=== PATIENT | female | born 1995 | race Two or more races ===

== ENCOUNTER 2016-08-06 22:14 | Inpatient (IN) | payer MEDICAID, OTHER ==
[2016-08-06] MEDS ORDERED: LIDOCAINE 1% (PRES FREE) 30 ML VIAL ONE (22:20)
[2016-08-06] MEDS ORDERED: PUMP TUBING ONE (22:20)
[2016-08-06] MEDS ORDERED: MINERAL OIL 25 ML BOT ONE (22:20)
[2016-08-06] MEDS ORDERED: OXYTOCIN 10 UNITS/ML VIAL ONE (22:20)
[2016-08-06] MEDS ORDERED: LACTATED RINGERS 1,000 ML ONE ×2 (22:20→23:39)
[2016-08-06] MEDS ORDERED: OXYTOCIN IN LR 0 ML IV ONE (22:20)
[2016-08-06] MEDS ORDERED: LIDOCAINE Viscous 2% 15 ML UDCUP ONE (22:20)
[2016-08-06] MEDS ORDERED: IV START KIT ONE ×2 (22:20→23:38)
[2016-08-06] MEDS ORDERED: SODIUM CHLORIDE 0.9% FLUSH 0 ML ONE (22:21)
[2016-08-06 23:24] VITALS: BMI 39.2
[2016-08-06] MEDS ORDERED: CEFAZOLIN SODIUM 2 GRAM DUPLEX 2 G in Premix (D5W) 50 ml 1 EACH IV PRN (23:47)
[2016-08-06] MEDS ORDERED: BUPIVACAINE 0.75% SPINAL AMPUL 2 ML ONE (23:56)
[2016-08-06] MEDS ORDERED: MORPHINE SULFATE (DURAMORPH) 1 MG/ML 10ML AMP ONE (23:56)
[2016-08-06] MEDS ORDERED: FENTANYL 100 MCG/2 ML VIAL ONE (23:56)
[2016-08-06] MEDS ORDERED: EPHEDRINE SULFATE 50 MG/ML 1ML VIAL ONE (23:58)
[2016-08-06] MEDS ORDERED: SODIUM CHLORIDE 0.9% FLUSH 10 ML ONE (23:58)
[2016-08-06] MEDS ORDERED: SPINAL PROCEDURAL TRAY 1 EACH ONE (23:59)
[2016-08-07] MEDS: LACTATED RINGERS 1,000 ML IV SCH ×4 (00:05→17:35)
[2016-08-07] MEDS ORDERED: CEFAZOLIN SODIUM 2 GRAM DUPLEX 50 ML IV ONE (00:17)
[2016-08-07 00:29] LABS: HEMATOCRIT 37.8 % (37.0-47.0); MEAN CELL VOLUME 80.6 fl (81.0-99.0); MEAN CORPUSCULAR HEMOGLOBIN 25.6 pg (27.0-31.0); MEAN CORPUSCULAR HGB CONC 31.7 g/dl (33.0-37.0); RED CELL DISTRIBUTION WIDTH 18.6 % (11.5-14.5)
[2016-08-07] MEDS ORDERED: PROMETHAZINE HCL 25 MG/ML VIAL ONE (00:51)
[2016-08-07] MEDS ORDERED: OXYTOCIN 10 UNITS/ML VIAL ONE ×3 (00:51→01:38)
[2016-08-07] MEDS ORDERED: MEPERIDINE 25 MG/ML SYRINGE ONE ×2 (00:52)
[2016-08-07] MEDS ORDERED: ONDANSETRON 4 MG/2ML 2 ML VIAL ONE (01:38)
[2016-08-07] MEDS ORDERED: ONDANSETRON 4 MG/2ML 2 ML VIAL IV PRN ×2 (02:13→02:45)
[2016-08-07] MEDS ORDERED: DIPHENHYDRAMINE HCL 50 MG/1 ML VIAL IV PRN ×2 (02:13→02:45)
[2016-08-07] MEDS ORDERED: DIPHENHYDRAMINE HCL 25 MG CAPSULE PO PRN (02:13)
[2016-08-07] MEDS ORDERED: LANOLIN 50 APPLIC/7G TUBE TP PRN (02:13)
[2016-08-07] MEDS ORDERED: PROMETHAZINE HCL 25 MG/ML VIAL IM PRN (02:45)
[2016-08-07] MEDS ORDERED: NALBUPHINE HCL 20 MG/ML AMP IV PRN (02:45)
[2016-08-07] MEDS ORDERED: HYDROMORPHONE HCL 1 MG/ML SYRINGE IV PRN (02:45)
[2016-08-07] MEDS ORDERED: HYDROMORPHONE HCL 2 MG/ML SYRINGE IV PRN (02:45)
[2016-08-07] MEDS ORDERED: NALOXONE HCL 0.4 MG/ML VIAL IV PRN (02:45)
[2016-08-07] MEDS ORDERED: EPHEDRINE SULFATE 50 MG/ML 1ML VIAL IV PRN (02:45)
--- NOTE | 2016-08-07 02:45 | PCMBPN ---
Brief Post Op Note: Date of Procedure: 08/07/16 Start Time: Preoperative Diagnosis: 1. intrauterine at 41.3 weeks, labor, spontaneous rupture of membranes , footling breech presentation Postoperative Diagnosis: 1. Same Procedure: primary lower segment cesarian section, converted to an inverted t incision Surgeon: Aleksandar Carvalho Assist:ms. gabby gil Anesthesia: mr kyaw, spinal Findings: term sized uterus, both ovaries and tubes normal, footling breech, sacral anterior, live baby girl, 7/9, wt. 8lbs 3oz. placenta intact Condition: stable Complications: none IV Fluids: mLs of LR Urine Output: mLs Estimated Blood Loss: 500 mLs closure jessie patient tolerated procedure well and was returned to recovery room in stable condition with man draining clear yellow urine. patient received ancef pre operatively. ivp performed post operatively: preliminary report by radiologist showed contrast in both ureters and bladder.
[2016-08-07] MEDS: KETOROLAC TROMETHAMINE 30 MG/ML 1 ML VIAL IV SCH ×3 (04:14→17:14)
[2016-08-07 04:24] LABS: AMPHETAMINES/METHAMPHETAMINES NEGATIVE (NEGATIVE); COCAINE NEGATIVE (NEGATIVE); MARIJUANA NEGATIVE (NEGATIVE); METHADONE NEGATIVE (NEGATIVE); OPIATES POSITIVE (NEGATIVE); TRICYCLIC ANTIDEPRESSANTS NEGATIVE (NEGATIVE)
[2016-08-07] MEDS ORDERED: LACTATED RINGERS 1,000 ML ONE (04:36)
--- NOTE | 2016-08-07 07:17 | RAD ---
IVP W/O TOMOS COMPARISON: None. HISTORY: Exam and integrity of right ureter post . Possible ligation or laceration. Technique: A specialty cook image was obtained of the abdomen. Intravenous injection 125 mL Isovue 370. 2 supine images of the abdomen were obtained. FINDINGS: Calcification: None Bowel gas pattern: Normal. Nephrograms: There is no retained or delayed contrast enhancement. Collecting systems: Normal. No hydronephrosis or filling defect. Ureters: No hydroureter. Nonfilling of the distal ureters near the recently gravid uterus. No evidence of extravasation. Urinary bladder: Decompressed by Moise catheter. Bones: Normal. IMPRESSION: 1. Nonfilling of the distal ureters. The recently gravid uterus. No evidence of extravasation or obstruction. Preliminary report by Bakari Gasca M.D. 08/07/2016 at 0300
--- NOTE | 2016-08-07 07:41 | HP ---
Ani Muñoz : 1995 [id number] HISTORY OF PRESENT ILLNESS: This is a 20-year-old female with estimated date of delivery 07/28/2016 currently 41.[address] [facility] with spontaneous rupture of membranes about 9:15 this evening followed by uterine contractions. On admission she was found to be a breech presentation, appears to be a footling breech presentation. Bedside ultrasound confirmed the baby's head in the left upper quadrant. She is scheduled for a primary lower segment section footling breech presentation. Risks, reasons, complications, living will, alternatives discussed all in laypersons terms and all questions were answered. OB HISTORY: 2, para 1-0-0-1, one spontaneous vaginal delivery of an 8 pound 11 ounce baby at 38 weeks. FIBER MACHINE TENDER HISTORY: Menarche 13 x28 x7. PAST MEDICAL HISTORY: Negative. ALLERGIES: None. SOCIAL HISTORY: Nonsmoker, nondrinker, but she did admit to taking illegal drugs marijuana. PAST SURGICAL HISTORY: Negative. REVIEW OF SYSTEMS: Noncontributory other than the history of spontaneous rupture of membranes and uterine contractions. She did have induced hypertension with her first delivery. PHYSICAL EXAMINATION: GENERAL: Is a healthy female in no acute distress, but having regular uterine contractions. HEENT: Normal. NECK: Supple. Thyroid not palpable. BREAST: Deferred at this time, but was normal during . HEART: Regular sinus rhythm with no murmurs. LUNGS: Clear. ABDOMEN: Gravid. Estimated weight 6-1/2 to 7 pounds. PELVIC: Showed the cervix to be 4 cm dilated with what appeared to be a small part of foot noted and about 50% effaced. DIAGNOSTICS: Bedside ultrasound was performed which did show the baby's head in the left upper quadrant. IMPRESSION: Breech presentation, what appears to be a footling breech. PLAN: Primary lower segment section. JOB: [id number]
--- NOTE | 2016-08-07 08:13 | OP ---
Ani Muñoz : 1995 [id number] NAME OF OPERATION: Primary lower segment section that was converted to an inverted T-incision. PREOPERATIVE DIAGNOSES: 1. Intrauterine at 41.3 weeks gestation. 2. Labor. 3. Spontaneous rupture of membranes footling breech presentation. POSTOPERATIVE DIAGNOSES: 1. Intrauterine at 41.3 weeks gestation. 2. Labor. 3. Spontaneous rupture of membranes footling breech presentation. WHITEPRINTING MACHINE OPERATOR: Dr. Aleksandar Saldaña. TICKER MAINTAINER: Yessenia Irizarry. ANESTHESIA: Mr. Clark and spinal. DESCRIPTION OF PROCEDURE: Dictation begins with the patient in the supine position after the spinal anesthesia was successfully performed. The abdomen was prepared with Chloraprep and draped in the usual manner and the Moise was draining clear yellow urine at the onset of the procedure. After timeout was performed the skin was tested and found to be with complete anesthesia. A knife was used to make a pfannenstiel incision. The same knife was used to dissect down the subcutaneous tissue to the rectus abdominis fascia which was nicked with the knife and carried laterally with Hernandez scissors. All bleeding points were clamped with Hayley's and bovied. The superior portion of the fascia was grasped with Darby clamps. A median raphe divider with the Hernandez scissors and a similar procedure was performed on the lower end of the incision. The muscle was split mid portion. The peritoneum identified, picked up with two Hayley clamps, divided in between with the Metzenbaum scissors and then stretched laterally. Findings included a term sized uterus and both ovaries and tubes appeared normal. A Giselle retractor was inserted into the lower end of the incision and the anterior visceroperitoneum was grasped with tissue forceps, nicked with the Metzenbaum scissors and carried laterally with the same scissors. The bladder flap was then bluntly dissected down and replaced underneath the Giselle retractor. A knife was used to make a lower uterine incision which was stretched laterally. There was clear amniotic fluid noted. The right leg extended into the vagina. The left leg appeared flexed. The baby was rotated to the patient's left delivering the left leg and then the baby was rotated to the patient's right and then the right leg was delivered. The baby's hips were then grasped with the delivery of the buttock and body followed. The baby was then rotated to the maternal left and the left arm and shoulder were delivered uneventfully. The baby was then rotated to the maternal right and delivery of the other shoulder and arm. At this point an attempt was made to deliver the baby's head, however, it was a very tight fit in and for this reason the rectus abdominis muscles were cut with Bandage scissors and an inverted T-incision was made on the uterus and then the delivery of the baby's head was performed uneventfully. Cord was clamped twice with two Hayley clamps and divided in between with a bandage scissor. The baby was then given to the nurses for care. 's, the baby was 7 and 9 at one and five minutes respectively and the weight 8 pounds 3 ounces. It was a live baby girl. Cord blood was obtained and then the placenta was delivered manually intact. The uterus was then placed outside the peritoneal cavity and wiped clean of membranes and blood clots and then ring forceps were placed at the three and nine o'clock positions of the uterus. The inverted T portion of the uterus was closed in 3 layers using interrupted sutures of 1 Chromic material and then the lower uterine transverse incision was closed in two layers using 1 Chromic continuous interlocking sutures, the second layer imbricating the first. There was an extension noted to the right angle of the uterine incision which was repaired with the same continuous Chromic sutures resulting in complete hemostasis. Posteriorly on the uterus there was one bleeding point noted which was individually sutured with 3-0 Chromic interrupted sutures. The uterus was then replaced into abdominal cavity and checked and there was complete hemostasis. With sponge and instrument report as correct and complete hemostasis the rectus abdominis muscles were repaired with 1 Chromic material and then brought together in the midline with additional sutures of 1 Chromic material interrupted sutures. Now with the muscle repaired and complete hemostasis, sponge and instrument count reported as correct, the fascia was closed in right and left halves using 1 Vicryl continuous sutures locking the first. Subcutaneous bleeding points were bovied prior to closure of skin. The skin was closed with jessie. Upon closure of the skin an intravenous pyelogram was ordered because of the extension to the right side of the uterine incision. It did not appear that the ureter was involved, however, as a precaution intravenous pyelogram was performed. Preliminary report from the radiologist showed that there is contrast filling both right and left ureter and contrast in the bladder. Official report is pending. Estimated blood loss was 500 mL and patient tolerated procedure and was returned to recovery room in stable condition with a Moise draining clear yellow urine. The patient received Ancef prior to the incision. JOB: [id number]
--- NOTE | 2016-08-07 10:30 | PDOC44 ---
- Subjective Day: 0 (offers no complaints) Reports Pain Tolerable, Reports , Reports Lochia Light, Reports Tolerating Clear Liquids, Denies Flatus, Denies Nausea, Denies Vomiting, Denies Fever - Objective Temp Pulse Resp BP Pulse Ox 98.1 F 69 16 129/73 08/07/16 07:51 08/07/16 07:51 08/07/16 07:51 08/07/16 07:51 Lab Results 08/06/16 23:48 WBC 10.9 H RBC 4.69 Hgb 12.0 Hct 37.8 Plt Count 170 08/07/16 08/06/16 03:50 23:48 MCV 80.6 L MCH 25.6 L MCHC 31.7 L RDW 18.6 H Urine Opiates Screen Positive H Current Medications Generic Name Dose Route Start Last Admin Trade Name Freq PRN Reason Stop Dose Admin Diphenhydramine HCl 25 - 50 mg 08/07/16 02:13 Benadryl PO Q6H PRN Itching (Mild/Moderate) Diphenhydramine HCl 25 - 50 mg 08/07/16 02:13 Benadryl IV Q6H PRN Itching (Severe) Diphenhydramine HCl 25 - 50 mg 08/07/16 02:45 08/07/16 04:05 Benadryl IV 08/08/16 00:37 25 mg Q4H PRN Administration Itching Docusate Sodium 100 mg 08/07/16 09:00 Colace PO BID DESIREE Emollient Ointment 1 applic 08/07/16 02:13 Ovl-[id number]-Excvpf TP PRN PRN sore nipples Ephedrine Sulfate 5 - 10 mg 08/07/16 02:45 Ephedrine Sulfate IV 08/08/16 00:37 Q5M PRN Hydromorphone HCl 0.5 - 2 mg 08/07/16 02:45 Dilaudid IV 08/08/16 00:37 Q1H PRN Pain (Breakthrough) Hydromorphone HCl 0.5 - 2 mg 08/07/16 02:45 Dilaudid IV 08/08/16 00:37 Q1H PRN Pain Lactated Ringer's 1,000 mls @ 125 mls/hr 08/07/16 05:30 08/07/16 06:41 Lactated Ringers IV Not Given .Q8H DESIREE Ibuprofen 800 mg 08/08/16 06:30 Motrin PO Q8H PRN Pain Ketorolac Tromethamine 30 mg 08/07/16 02:45 08/07/16 04:14 Toradol IV 08/08/16 00:37 30 mg Q6H DESIREE Administration Multivi/Iron Carb/Fe Sulf/FA/Prenat 1 tab 08/07/16 09:00 Plus PO DAILY DESIREE Nalbuphine HCl 1 - 5 mg 08/07/16 02:45 Nubain IV 08/08/16 00:37 Q4H PRN Itching Naloxone HCl 0.2 - 0.4 mg 08/07/16 02:45 Narcan IV 08/08/16 00:37 Q5M PRN Ondansetron HCl 4 mg 08/07/16 02:13 Zofran IV Q6H PRN Nausea/Vomiting Ondansetron HCl 4 mg 08/07/16 02:45 Zofran IV 08/08/16 00:37 Q6H PRN Nausea/Vomiting Oxycodone/Acetaminophen 1 - 2 tab 08/07/16 02:13 Percocet 5/325 PO Q4H PRN Pain (Moderate) Promethazine HCl 12.5 mg 08/07/16 02:45 Phenergan IM 08/08/16 00:37 Q4H PRN Nausea/Vomiting Sodium Chloride 10 ml 08/07/16 02:13 Normal Saline 10ml Flush IV PRN PRN IV Flush Sodium Chloride 10 ml 08/07/16 09:00 Normal Saline 10ml Flush IV Q8HR [facility] - Physical Exam General: Afebrile, No Acute Distress Psych/Mental Status: Mood/Affect Appropriate, Judgment/Insight Intact, Bonding Well Lungs: Clear to Auscultation Bilaterally, Normal Air Movement Breast: Soft, Skin intact, Nipples Intact, No Tenderness, No Erythema, No Engorged Fundus: Firm, Midline, Below Umbilicus, Other (nontender) Abdomen: Normal Bowel Sounds, No Tenderness, No Distention Genitourinary: Indwelling Urinary Cath, Other (clear yellow concentrated urine) Lochia: Light Extremities: No Tenderness Wound PROTECTION OFFICER: Dressing in Place, Dressing Clean/Dry/Intact Disposition: Stable
[2016-08-07] MEDS: DOCUSATE SODIUM 100 MG CAPSULE PO SCH (17:15)
[2016-08-07] MEDS: PRENATAL VIT/FE FUMARATE/FA 1 TABLET PO SCH (17:36)
[2016-08-07] MEDS: OXYCODONE/ACETAMINOPHEN 5/325 MG TABLET PO PRN ×2 (19:55→23:59)
[2016-08-08] MEDS ORDERED: IBUPROFEN 800 MG TABLET ONE (00:04)
[2016-08-08] MEDS: IBUPROFEN 800 MG TABLET PO PRN ×3 (00:06→17:15)
[2016-08-08] MEDS: OXYCODONE/ACETAMINOPHEN 5/325 MG TABLET PO PRN ×4 (05:30→21:03)
[2016-08-08 06:57] LABS: HEMATOCRIT 33.8 % (37.0-47.0); HEMOGLOBIN 10.4 gm/l (12.0-16.0)
[2016-08-08] MEDS: DOCUSATE SODIUM 100 MG CAPSULE PO SCH ×3 (08:27→21:03)
[2016-08-08] MEDS: PRENATAL VIT/FE FUMARATE/FA 1 TABLET PO SCH (08:27)
--- NOTE | 2016-08-08 12:54 | PDOC44 ---
- Subjective Day: 1 (Pt initially wanted to go home today because her aunt unexpectedly this morning. But now she agrees that it is wiser if she stays till tomorrow. This was a dfifficult surgery and we would like to watch her and the baby girl till tomorrow at least. ) Pt has been up and moving. Pain is less when she is up. Voiding well. She has showered and bandage is off. Bleeding is tapering down, not much. Reports Flatus, Reports Pain Tolerable, Reports , Reports Lochia Moderate - Objective Temp Pulse Resp BP Pulse Ox 98.2 F 79 16 127/72 08/08/16 02:31 08/08/16 02:31 08/08/16 02:31 08/08/16 02:31 Lab Results 08/08/16 06:30 Hgb 10.4 L Hct 33.8 L Current Medications Generic Name Dose Route Start Last Admin Trade Name Freq PRN Reason Stop Dose Admin Diphenhydramine HCl 25 - 50 mg 08/07/16 02:13 Benadryl PO Q6H PRN Itching (Mild/Moderate) Diphenhydramine HCl 25 - 50 mg 08/07/16 02:13 Benadryl IV Q6H PRN Itching (Severe) Docusate Sodium 100 mg 08/07/16 09:00 08/08/16 08:27 Colace PO 100 mg BID DESIREE Administration Emollient Ointment 1 applic 08/07/16 02:13 Cux-S-Asdenz TP PRN PRN sore nipples Lactated Ringer's 1,000 mls @ 125 mls/hr 08/07/16 05:30 08/07/16 17:35 Lactated Ringers IV Not Given .Q8H DESIREE Ibuprofen 800 mg 08/08/16 06:30 08/08/16 08:27 Motrin PO 800 mg Q8H PRN Administration Pain Multivi/Iron Carb/Fe Sulf/FA/Prenat 1 tab 08/07/16 09:00 08/08/16 08:27 Plus PO 1 tab DAILY DESIREE Administration Ondansetron HCl 4 mg 08/07/16 02:13 Zofran IV Q6H PRN Nausea/Vomiting Oxycodone/Acetaminophen 1 - 2 tab 08/07/16 02:13 08/08/16 10:34 Percocet 5/325 PO 2 tab Q4H PRN Administration Pain (Moderate) Sodium Chloride 10 ml 08/07/16 02:13 08/07/16 17:14 Normal Saline 10ml Flush IV 10 ml PRN PRN Administration IV Flush Sodium Chloride 10 ml 08/07/16 09:00 08/08/16 05:28 Normal Saline 10ml Flush IV 10 ml Q8HR DESIREE Administration - Physical Exam General: Afebrile Psych/Mental Status: Mood/Affect Appropriate, Bonding Well Neurological: Alert, Normal Gait, Normal Speech Lungs: Clear to Auscultation Bilaterally Cardiovascular: Regular Rate and Rhythm Fundus: Firm Abdomen: Normal Bowel Sounds, Mild Distention Lochia: Light Skin: Normal Color, Warm, Dry Wound RAILWAY TRACK PLANT OPERATOR: Well Approximated, [place] Intact - Problems:Assessment/Plan (1) Footling breech presentation Status: Acute Assessment/Plan: Difficult delivery requiring T extension of uterine incision. (2) delivery, delivered, current hospitalization Status: Acute Assessment/Plan: Pt recovering well from her surgery. Disposition: Stable, Anticipate DC Home Tomorrow
[2016-08-08] MEDS: LACTATED RINGERS 1,000 ML IV SCH ×2 (17:28→17:31)
[2016-08-09] MEDS: OXYCODONE/ACETAMINOPHEN 5/325 MG TABLET PO PRN ×3 (01:04→10:19)
[2016-08-09] MEDS: IBUPROFEN 800 MG TABLET PO PRN ×2 (01:05→09:16)
[2016-08-09] MEDS: PRENATAL VIT/FE FUMARATE/FA 1 TABLET PO SCH (09:16)
[2016-08-09] MEDS: DOCUSATE SODIUM 100 MG CAPSULE PO SCH (09:16)
[2016-08-09 10:23] VITALS: BP 117/65
--- NOTE | 2016-08-09 10:24 | PDOC39B ---
Hospital Course: ADMIT DATE: 08/06/16 DISCHARGE DATE: 08/09/16 ADMISSION DIAGNOSES: Term in labor, post SROM, footling breech. PROCEDURES: Primary section, inverted T incision. HISTORY OF PRESENT ILLNESS: 20 year old G2 T1 L0 at 41 weeks 3 days presenting with ROM and early labor. HOSPITAL COURSE: The patient unfortunately was found to have a footling breech presentation. C/section was recommended. This was accomplished with some difficulty on extraction of the baby girl; 8lb 3oz, 7/9, born at 01:02hrs on 08/07/16. Pt has done well in the new born period. She is grieving the loss of her aunt who unexpectedly the same day. By day of discharge the patient is ambulating, eating, voiding, and passing flatus without difficulty. Pain is controlled and lochia is appropriate. She is . - Physical Exam Vital Signs: Temp Pulse Resp BP Pulse Ox 98.6 F 71 18 115/54 08/09/16 01:30 08/09/16 01:30 08/09/16 01:30 08/09/16 01:30 General: Afebrile Psych/Mental Status: Mood/Affect Appropriate Neurological: Oriented x 4, Normal Speech Lungs: Clear to Auscultation Bilaterally Cardiovascular: Regular Rate and Rhythm Fundus: Below Umbilicus Abdomen: Normal Bowel Sounds Lochia: Light Skin: Normal Color, Warm, Dry Wound: Well Approximated, [place] Intact - Discharge Diagnosis (1) Footling breech presentation Status: Acute Assessment/Plan: Difficult delivery requiring T extension of uterine incision. (2) delivery, delivered, current hospitalization Status: Acute Assessment/Plan: Pt recovering well from her surgery. - Discharge Plan Condition: Good Disposition: Home Prescriptions: Docusate Sodium [COLACE 100 MG CAPSULE (SHF)] 100 mg PO BID #60 capsule Ibuprofen [IBUPROFEN 800 MG TABLET (SHF)] 800 mg PO Q8H PRN #100 tablet PRN Reason: Pain Oxycodone HCl/Acetaminophen [PERCOCET 5/325 MG TABLET (SHF)] 1 - 2 tab PO Q4H PRN #60 tablet PRN Reason: Pain (Moderate) Follow-Up: Aleksandar Carvalho MD [Primary Care Provider] - In 2-3 days
[2016-08-09] MEDS ORDERED: DIPHTH,PERTUSS(ACELL),TET VAC 0.5 ML VIAL IM V ONE (10:56)
== END 2016-08-09 13:42 | disposition home or self-care (01) | DRG 765 ==
LOC: FBC 22:14 → FBCOUT 22:14 → FBC 23:35 → FBCOUT 23:35 → FBC 08-07 19:52
PROVIDERS: ADMIT Obstetrics & Gynecology; ATTEND Obstetrics & Gynecology
PROC: 10D00Z1 Extraction of Products of Conception, Low, Open Approach (ICD-10-PCS; principal; 2016-08-06)
DX: O32.8XX0 Maternal care for other malpresentation of fetus, not applicable or unspecified (principal); O99.324 Drug use complicating childbirth; F12.90 Cannabis use, unspecified, uncomplicated; O48.0 Post-term pregnancy; O99.214 Obesity complicating childbirth; E66.01 Morbid (severe) obesity due to excess calories; Z68.39 Body mass index [BMI] 39.0-39.9, adult; O36.63X0 Maternal care for excessive fetal growth, third trimester, not applicable or unspecified; Z3A.41 41 weeks gestation of pregnancy; Z37.0 Single live birth